=== PATIENT | female | born 1990 | race Caucasian/White ===

== ENCOUNTER 2016-10-09 18:54 | Emergency (ER) | payer MEDICAID ==
[2016-10-09 19:19] VITALS: BP 119/75
--- NOTE | 2016-10-09 19:20 | EDM.PDOC ---
ED HPI GENERAL MEDICAL PROBLEM - General Chief Complaint: Skin Complaint Stated Complaint: PT HAS LUMP UNDER LT ARM Time Seen by Provider: 10/09/16 19:09 - History of Present Illness INITIAL COMMENTS - FREE TEXT/NARRATIVE: HISTORY AND PHYSICAL: History of present illness: The patient is a 26-year-old female with a history of MRSA in the past and presents with a several day history of feeling 2 lumps under her left armpit. She is concerned as they're infected and they are uncomfortable and painful. She has not noticed any drainage from the area and has no other skin lesions lumps or bumps. She's had no systemic complaints of fever chills vomiting abdominal pain chest pain or shortness of breath. Review of systems: As per history of present illness and below otherwise all systems reviewed and negative. Past medical history: As per history of present illness and as reviewed below otherwise noncontributory. Surgical history: As per history of present illness and as reviewed below otherwise noncontributory. Social history: No reported history of drug or alcohol abuse. Family history: As per history of present illness and as reviewed below otherwise noncontributory. Physical exam: General: Well-developed well-nourished female who is nontoxic vital signs by me. HEENT: Atraumatic, normocephalic, negative for conjunctival pallor or scleral icterus, mucous membranes moist, throat clear, neck supple, nontender, trachea midline. There is no cervical adenopathy Lungs: Clear to auscultation, breath sounds equal bilaterally, chest nontender. Heart: S1S2, regular, negative for clicks, rubs, or JVD. Abdomen: Soft, nondistended, nontender. NABS Skin: Normal turgor no evidence of any rashes or lesions appreciated Genitourinary: Deferred. Rectal: Deferred. Extremities: Atraumatic, negative for cords or calf pain. Neurovascular unremarkable. At the left axillary area there is no lymphadenopathy appreciated no redness but there are 2 small rubberlike lesions appreciated which are mobile and nonfluctuant there is no evidence of any drainage. They're only minimally tender in the surrounding skin is without any lesions or defects. Neuro: Awake, alert, oriented. Cranial nerves II through XII unremarkable. Cerebellum unremarkable. Motor and sensory unremarkable throughout. Exam nonfocal. Diagnostics: [facility] Therapeutics: [] I discussed with the patient that she should refrain from shaving the axillary area and this is the likely cause of 2 areas of early infection at this time there is nothing that can be drained and we will place on antibiotics and advised for followup Impression: Axillary lesions/cellulitis Definitive disposition and diagnosis as appropriate pending reevaluation and review of above. left under arm Pain Score (Numeric/FACES): 0 - Related Data Allergies Allergy/AdvReac Type Severity Reaction Status Date / Time amoxicillin Allergy Anaphylactic Verified 10/09/16 19:14 Shock azithromycin Allergy Anaphylactic Verified 10/09/16 19:14 Shock clindamycin Allergy Hives Verified 10/09/16 19:14 Penicillins Allergy Anaphylactic Verified 10/09/16 19:14 Shock vancomycin Allergy Swelling Verified 10/09/16 19:14 Home Meds: Home Meds . [No Known Home Meds] 10/09/16 [History] ED ROS GENERAL - Review of Systems Review Of Systems: ROS reveals no pertinent complaints other than HPI. ED EXAM, SKIN/RASH Exam: See Below (See dictation) Course - Vital Signs Last Recorded V/S: Last Vital Signs Temp 36.7 C 10/09/16 19:16 Pulse 92 10/09/16 19:16 Resp 16 10/09/16 19:16 BP 119/75 10/09/16 19:16 Pulse Ox 99 10/09/16 19:16 - Orders/Labs/Meds Labs: Laboratory Tests 10/09/16 Range/Units 19:14 Urine HCG, Qual NEGATIVE (NEGATIVE) Departure - Departure Time of Disposition: 19:31 Disposition: Home, Self-Care 01 Condition: good Clinical Impression: Cellulitis Qualifiers: Site of cellulitis: extremity Site of cellulitis of extremity: axilla Laterality: left Qualified Code(s): L03.112 - Cellulitis of left axilla Lump in armpit Qualifiers: Laterality: left Qualified Code(s): R22.32 - Localized swelling, mass and lump , left upper limb - Discharge Information Referrals: PCP,None [Primary Care Provider] - Forms: ED Department Discharge Additional Instructions: The following information is given to patients seen in the emergency department who are being discharged to home. This information is to outline your options for follow-up care. We provide all patients seen in our emergency department with a follow-up referral. The need for follow-up, as well as the timing and circumstances, are variable depending upon the specifics of your emergency department visit. If you don't have a primary care physician on staff, we will provide you with a referral. We always advise you to contact your personal physician following an emergency department visit to inform them of the circumstance of the visit and for follow-up with them and/or the need for any referrals to a consulting specialist. The emergency department will also refer you to a specialist when appropriate. This referral assures that you have the opportunity for followup care with a specialist. All of these measure are taken in an effort to provide you with optimal care, which includes your followup. Under all circumstances we always encourage you to contact your private physician who remains a resource for coordinating your care. When calling for followup care, please make the office aware that this follow-up is from your recent emergency room visit. If for any reason you are refused follow-up, please contact the [facility] emergency department at and ask to speak to the emergency department charge nurse. [facility]- [facility] Medicine and Family [address] [address] Please take antibiotics as prescribed and use [id number] Tylenol/ ibuprofen for tramadol you have been prescribed. If the area becomes up to her head and needs drainage please return to the ER . You should schedule a followup appointment in the clinic
== END 2016-10-09 19:37 | disposition home or self-care (01) ==
LOC: MW.ED 18:54
DX: L03.112 Cellulitis of left axilla (principal); Z88.1 Allergy status to other antibiotic agents; Z88.0 Allergy status to penicillin
CPT/HCPCS: 81025; 99283